=== PATIENT | male | born 1955 | race African-American/Black ===

== ENCOUNTER 2016-11-25 07:46 | Emergency (ER) | payer OTHER ==
[~2016-11-25 07:46] MED LIST: CLINDAMYCIN PO; INDOMETHACIN75 MG PO; NAPROSYN500 MG PO; NO MEDICATIONS; NORCO 10-325 TA1 TAB PO; PREDNISONE PO; TYLOX 5-500 CA1 EACH PO; ULTRAM PO; VICODIN 5/500 T1 TAB PO
== END 2016-11-25 09:13 | disposition home or self-care (01) ==
LOC: CED 07:46
DX: M1A.9XX0 Chronic gout, unspecified, without tophus (tophi) (principal); I10 Essential (primary) hypertension
CPT/HCPCS: 96372; 99283; J1885

== ENCOUNTER 2016-12-03 16:11 | Inpatient (IN) | payer OTHER ==
--- NOTE | ~2016-12-03 | US85 ---
[facility] A Service of [facility] & [facility] RADIOLOGY TEXT RESULTS PATIENT: MAYRA MEJIA LOCATION: [place] [id number] : 55 UNIT #: [id number] AGE: [address]: Clau Guidry MD SEX: M ORDER DR: [id number] [facility] [address] [facility]. [place], [place] [address] [id number] I MR#: [id number] Acc #: [id number] NAME: MAYRA MEJIA. : 1955 SEX: M STUDY DATE/TIME: 12/03/2016 19:32 UNIT: [facility] ROOM: [facility] STUDY DESCRIPTION: US LE Veins Unilat or Ltd Stdy Attending Physician: Clau Guidry M.D. Ordering Physician: Gretel Steen M.D. Primary Care Physician: Rafy Mustafa Jr., A.P.R.N. MEDICAL IMAGING REPORT This report is preliminary unless electronic signature is present EXAM Left lower extremity venous ultrasound HISTORY Left lower extremity pain and swelling and shortness of air for 1 week. TECHNIQUE Venous ultrasound examination of the left lower extremity was performed using grayscale, spectral Doppler and color flow Doppler imaging. FINDINGS The examination is negative. There is no evidence of left lower extremity deep venous thrombus from the groin to the lower calf. Visualized greater saphenous vein is also patent. IMPRESSION Negative examination. No evidence of left lower extremity deep venous thrombosis. Dictated by... Al Mejia M.D. THIS IS AN ELECTRONICALLY VERIFIED REPORT Al Mejia M.D. at 12/04/2016 3:12 PM Alfie TD: 12/04/2016 08:17 JOB #: [id number] MEDICAL IMAGING REPORT Page 1 of 1 COPY
--- NOTE | ~2016-12-03 | CR169 ---
[facility] A Service of [facility] & [facility] RADIOLOGY TEXT RESULTS PATIENT: MAYRA MEJIA LOCATION: [place] [address] : 55 UNIT #: [id number] AGE: [address]: Clau Guidry MD SEX: M ORDER DR: [id number] [facility] [address] [place], [place] [address] [id number] I MR#: [id number] Acc #: [id number] NAME: MAYRA MEJIA. : 1955 SEX: M STUDY DATE/TIME: 12/03/2016 17:33 UNIT: [facility] ROOM: [facility] STUDY DESCRIPTION: CR Knee 2 Views Lt Attending Physician: Prudencio Mae M.D. Ordering Physician: Gretel Steen M.D. Primary Care Physician: Rafy Mustafa Jr., A.P.R.N. MEDICAL IMAGING REPORT This report is preliminary unless electronic signature is present EXAM Left knee, 2 views HISTORY Knee pain and swelling for 1 week. No injury. FINDINGS Two views left knee demonstrate normal bone alignment. No fracture, joint space narrowing or effusion. Soft tissue swelling over the anterior knee, inferior to the patella extending to the anterior tibial tubercle. IMPRESSION 1. No fracture. Satisfactory bone alignment. 2. Anterior soft tissue swelling extending from the lower pole of the patella to the anterior tibial tubercle. Dictated by... Al Mejia M.D. THIS IS AN ELECTRONICALLY VERIFIED REPORT Al Mejia M.D. at 12/04/2016 3:07 PM DFL/psc TD: 12/04/2016 02:51 JOB #: [id number] MEDICAL IMAGING REPORT Page 1 of 1 COPY
--- NOTE | ~2016-12-03 | HP ---
Unit #: [id number] #: [id number] Patient: MAYRA MEJIA [id number] [address] [place], [place] [address] [id number] I MR#: [id number] NAME: MAYRA MEJIA. ROOM: 471 Age: 61 Sex: M Admission Date: 12/03/2016 : 1955 Attending Physician: Prudencio Mae M.D. Primary Care Physician: Rafy Mustafa Jr., A.P.R.N. HISTORY AND PHYSICAL CHIEF COMPLAINT Left ankle and left lower leg swelling, pain. DISCUSSION This is a 61-year-old gentleman with a history of gout. He initially presented here in the emergency room on November 25 for left leg and ankle pain. Was diagnosed with gout and he said he was given some shot and pain pills. He also received pain medication with worsening symptoms. It did not improve, came to the emergency room today. He had been having left lower leg pain progressing over one week. Increasing swelling and edema on the left lower leg and severe pain. He underwent ultrasound. Ultrasound preliminary report so far is negative for DVT. He has increased CRP and being admitted for diagnosis of left ankle and left lower leg cellulitis. He denies fever, chills, cough, chest pain, diaphoresis, palpitations or any other complaint. PAST MEDICAL HISTORY History of gout. HOME MEDICATION Does not take any home medication at this time. ALLERGIES No allergies. SOCIAL HISTORY The patient says he is a lifelong nonsmoker, does not drink alcohol. Lives with his niece. FAMILY HISTORY Gout. REVIEW OF SYSTEMS All review of systems is negative except for history of present illness. PHYSICAL EXAMINATION GENERAL: Middle aged male lying in the bed comfortably, currently not in any distress. He is alert, awake, oriented x3. CURRENT VITAL SIGNS: Temperature 98.7, heart rate 93, respiratory rate 16, blood pressure 157/107. Oxygen 99% on room air. HEENT: Pupils equal, reactive to light and accommodation. Head is normocephalic, atraumatic. NECK: Supple. No JVD. HEART: S1, S2. Regular rate and rhythm. Unit #: [id number] #: [id number] Patient: JACKIE,MAYRA L LUNGS: Clear to auscultation bilaterally. No rhonchi, no wheezing. ABDOMEN: Soft, nontender, nondistended. Bowel sounds positive. EXTREMITIES: Left lower leg positive for swelling and warm. Left ankle positive for swelling also. Right leg - no cyanosis, no clubbing, no edema. NEURO: Cranial nerves II-XII intact. No focal neurologic deficit. SKIN: Warm, dry. PSYCH: Normal mood and affect. DIAGNOSTIC STUDIES LABORATORY: C-reactive protein is 16, INR is 1.1. Chemistry - sodium 134, potassium 3.5, chloride 102, glucose 102, BUN 21, creatinine 1.2, white count 10, hemoglobin 12, hematocrit 39, platelets 200. IMAGING: X-ray of the left ankle - there is a 1 cm lucent area at the left malleolar tip, otherwise unremarkable. Some soft tissue swelling. Left knee x-ray is negative. Anterior soft tissue swelling. ASSESSMENT AND PLAN 1. Left lower leg/left ankle cellulitis: Will start the patient on IV Rocephin and vancomycin. 2. History of gout: Will recheck (1) level. 3. Deep venous thrombosis prophylaxis: Will place the patient on Lovenox. Dictated by Idalmis Kamara/montserrat TD: 12/04/2016 06:21 JOB #: [id number] HISTORY AND PHYSICAL Page 1 of 1 X X HISTORY AND PHYSICAL
--- NOTE | ~2016-12-03 | CR20 ---
[facility] A Service of [facility] RADIOLOGY TEXT RESULTS PATIENT: MAYRA MEJIA LOCATION: [facility] [address] : 55 UNIT #: [id number] AGE: [address]: Clau Guidry MD SEX: M ORDER DR: [id number] [facility] [address] [facility]. [place], [place] [address] [id number] I MR#: [id number] Acc #: [id number] NAME: MAYRA MEJIA. : 1955 SEX: M STUDY DATE/TIME: 12/03/2016 17:30 UNIT: [facility] ROOM: [facility] STUDY DESCRIPTION: CR Ankle Min 3 Views Lt Attending Physician: Prudencio Mae M.D. Ordering Physician: Gretel Steen M.D. Primary Care Physician: Rafy Mustafa Jr., A.P.R.N. MEDICAL IMAGING REPORT This report is preliminary unless electronic signature is present EXAM Left ankle series dated 12/03/2016. COMPARISON No priors. HISTORY Left ankle and knee pain 1 week ago. FINDINGS Three views of the left ankle were obtained. No acute displaced fracture or dislocation is seen. There is a 1 cm lucent area noted in the region of the lateral malleolar tip with some peripheral sclerosis. It is best seen in the oblique view. Even if it is a true lesion, it is probably a chronic, nonaggressive lesion like a cyst. In the superior and medial aspect of the talus, there is a lucent lesion with peripheral sclerosis most suggestive of an osteochondral defect. No obvious associated loose bodies could be identified in the current modality. There is some soft tissue swelling in the ankle. Dictated by... Sumaya Lindsey M.D. THIS IS AN ELECTRONICALLY VERIFIED REPORT Sumaya Lindsey M.D. at 12/04/2016 8:43 PM CPR/psc TD: 12/04/2016 03:12 JOB #: [id number] MEDICAL IMAGING REPORT [facility] A Service of [facility] & [facility] RADIOLOGY TEXT RESULTS PATIENT: MAYRA MEJIA [address] #: [id number] : [birth year] UNIT #: [id number] AGE: [address]: Clau Guidry MD SEX: M ORDER DR: Page 1 of 1 COPY
--- NOTE | ~2016-12-03 | DS ---
Unit #: [id number] #: [id number] Patient: MAYRA MEJIA [id number] [address] [place], [place] [address] [id number] I MR#: [id number] NAME: MAYRA MEJIA. ROOM: 240 Age: 61 Sex: M Admission Date: 12/03/2016 : 1955 Discharge Date: 12/05/2016 Attending Physician: Clau Guidry M.D. Primary Care Physician: Rafy Mustafa Jr., A.P.R.N. DISCHARGE SUMMARY PRINCIPAL DIAGNOSES 1. Acute gout flare of left medial malleolus. 2. Left lower extremity cellulitis, mild. 3. Hypertension, controlled. 4. Hypokalemia. 5. Normocytic anemia. CONSULTANTS None. PROCEDURE 1. Left lower extremity venous Doppler which was negative for DVT. 2. X-ray of left ankle on December 03, 2016, without evidence of fracture. 1 cm lucent area in the lateral malleolar tip consistent with a non-aggressive cyst. 3. X-ray of left knee on December 03, 2016, with no fracture. Anterior soft tissue swelling extending from the lower pole of the patella to the anterior tibial tubercle. CLINICAL HISTORY/HOSPITAL COURSE Mr. Mejia is a 61-year-old -[place] male who presents to the emergency department with a one week history of progressive swelling and redness of the left ankle extending now to the left lower extremity. Please refer to H and P for further details. The patient clinically appeared to have some very mild degree of cellulitis. He had been treated for gout flare as an outpatient without improvement. Subsequently, he was admitted. The patient was placed on empiric Zosyn and vancomycin originally but remained afebrile and had only minimal leukocytosis with a white blood cell count of approximately 11,000. He was subsequently changed to Unasyn. He was also given some doses of Colcrys given the worst of the lesion appeared to be over the left medial malleolus and seemed more consistent with gout. However, I will not his urine acid level was low at 4.7. Unclear to me whether this was chronically controlled or whether it was perhaps secondary to a recent gouty flare with drop in uric acid level. Either way, today, patient's left ankle swelling and redness is significantly improved though not resolved. He has remained afebrile. He has not had any leukocytosis since initial presentation to the ER. He will be transitioned to oral pills and discharged home later today. I will note, patient did have some significantly elevated blood pressures which may be, a least partially, secondary to pain but systolics are running in the 150s to 160s. He was started on low dose lisinopril and Unit #: [id number] #: [id number] Patient: MAYRA MEJIA blood pressure now is in the 130s. I would avoid hydrochlorothiazide in this gout-prone patient in the future. The patient will be discharged home later today. DISCHARGE CONDITION Stable. DISCHARGE STATUS Discharge to home. DISCHARGE MEDICATIONS 1. Lisinopril 10 mg daily with one refill. 2. Percocet 7.5/325, one tablet p.o. q.4 hours p.r.n. for pain, number given 12. 3. Keflex 500 mg p.o. t.i.d. for seven days. DISCHARGE INSTRUCTIONS The patient was instructed to follow a heart healthy diet. He can increase his activity as tolerated. May return to work when his foot is able. FOLLOWUP The patient will follow up with his primary care provider, Dr. Mustafa, in two weeks. Dictated by... Clau Guidry M.D. MAXIMILIAN/montserrat TD: 12/06/2016 09:35 JOB #: [id number] DISCHARGE SUMMARY Page 1 of 1 X Clau Guidry MD X DISCHARGE SUMMARY
[2016-12-03 17:49] LABS: BASOPHIL% 0.3 % (0-2.5); EOSINOPHIL% 0.4 % (0.0-7.0); HEMATOCRIT 39.2 % (38.0-50.0); HEMOGLOBIN 12.8 gm/dL (13.0-16.0); LYMPHOCYTE% 9.2 % (17.0-45.0); MEAN CORPUSCULAR HEMOGLOBIN 27.5 PG (28-34); MEAN CORPUSCULAR HGB CONC 32.7 g/dL (30-36); MONOCYTE# 0.8 X10e3 (0-1.0); NEUTROPHIL# 9.1 X10e3 (1.5-7.1); NEUTROPHIL% 83.1 % (40-75); PLATELET COUNT 200 X10e3 (140-420); RED BLOOD COUNT 4.66 X10e (3.90-5.60); RED CELL DISTRIBUTION WIDTH 15.8 % (11.0-15.5); WHITE BLOOD COUNT 10.9 X10e3 (4.0-10.5)
[2016-12-03 17:55] LABS: DIFF IND NO
[2016-12-03 17:59] LABS: BUN/CREATININE RATIO 17.5; CALCIUM SERUM 8.9 mg/dL (8.4-10.2); CREATININE SERUM 1.2 mg/dL (0.6-1.4); GLOM FILT RATE Estimated 75.2 mL/min (>60); POTASSIUM 3.5 mmol/L (3.5-5.1)
[2016-12-03 18:04] LABS: INR 1.1; PARTIAL THROMBOPLASTIN TIME 41.1 SECONDS (23.5-31.3); PROTHROMBIN TIME (PATIENT) 11.4 SECONDS (10.0-11.7)
[2016-12-03] MEDS ORDERED: NO MEDICATIONS (19:27)
[2016-12-04 03:56] LABS: BASOPHIL# 0.1 X10e3 (0-0.3); BASOPHIL% 0.7 % (0-2.5); EOSINOPHIL# 0.1 X10e3 (0-0.7); EOSINOPHIL% 1.2 % (0.0-7.0); HEMATOCRIT 34.6 % (38.0-50.0); HEMOGLOBIN 11.4 gm/dL (13.0-16.0); LYMPHOCYTE# 1.6 X10e3 (1.0-3.5); LYMPHOCYTE% 18.9 % (17.0-45.0); MEAN CELL VOLUME 83.6 FL (83-96); MEAN CORPUSCULAR HEMOGLOBIN 27.6 PG (28-34); MEAN PLATELET VOLUME 9.2 FL (6.5-11.5); MONOCYTE# 0.9 X10e3 (0-1.0); MONOCYTE% 10.8 % (3.0-12.0); NEUTROPHIL# 5.7 X10e3 (1.5-7.1); NEUTROPHIL% 68.4 % (40-75); PLATELET COUNT 182 X10e3 (140-420); RED BLOOD COUNT 4.14 X10e (3.90-5.60); RED CELL DISTRIBUTION WIDTH 15.3 % (11.0-15.5); WHITE BLOOD COUNT 8.3 X10e3 (4.0-10.5)
[2016-12-04 03:58] LABS: DIFF IND NO
[2016-12-04 04:23] LABS: BUN/CREATININE RATIO 17.77; CALCIUM SERUM 8.2 mg/dL (8.4-10.2); CREATININE SERUM 0.9 mg/dL (0.6-1.4); GLOM FILT RATE Estimated 106.5 mL/min (>60); POTASSIUM 3.6 mmol/L (3.5-5.1); URIC ACID 4.7 mg/dL (2.6-7.2)
[2016-12-05 06:57] LABS: HEMATOCRIT 35.2 % (38.0-50.0); HEMOGLOBIN 11.6 gm/dL (13.0-16.0); MEAN CELL VOLUME 82.9 FL (83-96); MEAN CORPUSCULAR HEMOGLOBIN 27.4 PG (28-34); MEAN CORPUSCULAR HGB CONC 33.1 g/dL (30-36); MEAN PLATELET VOLUME 8.9 FL (6.5-11.5); RED BLOOD COUNT 4.25 X10e (3.90-5.60); WHITE BLOOD COUNT 8.4 X10e3 (4.0-10.5)
[2016-12-05 07:30] LABS: CALCIUM SERUM 8.5 mg/dL (8.4-10.2); GLOM FILT RATE Estimated 93.7 mL/min (>60); POTASSIUM 3.2 mmol/L (3.5-5.1)
[2016-12-05] MEDS ORDERED: PERCOCET 7.5-31 EACH PO (11:21)
[2016-12-05] MEDS ORDERED: LISINOPRIL10 MG PO (11:22)
[2016-12-05] MEDS ORDERED: KEFLEX500 MG PO (11:23)
== END 2016-12-05 12:51 | disposition home or self-care (01) | DRG 603 ==
LOC: CED 16:11 → CEDOF 20:00 → CED 20:13 → CEDOF 20:13 → C4C 21:00 → C2A 12-04 12:16
PROVIDERS: Internal Medicine; Student in an Organized Health Care Education/Training Program
DX: L03.116 Cellulitis of left lower limb (principal); M10.9 Gout, unspecified; D64.9 Anemia, unspecified
CPT/HCPCS: 36415; 73560; 73610; 80048; 84550; 85025; 85027; 85610; 85730; 86140; 87040; 93971; 96360; 99285; J0295; J1650; J2270; J2543; J3370

== ENCOUNTER 2016-12-21 21:43 | Emergency (ER) | payer OTHER ==
--- NOTE | ~2016-12-21 | CR141 ---
[facility] A Service of [facility] & [facility] RADIOLOGY TEXT RESULTS PATIENT: MAYRA MEJIA LOCATION: [facility] : 55 UNIT #: [id number] AGE: [address]: Keith Trujillo SEX: M ORDER DR: [id number] [facility] [address]. [place], [place] [address] [id number] MR#: [id number] Acc #: [id number] NAME: MAYRA MEJIA : 1955 SEX: M STUDY DATE/TIME: 12/21/2016 22:57 UNIT: [facility] ROOM: STUDY DESCRIPTION: CR Hand Min 3 Views Lt Attending Physician: Keith Trujillo P.A.-C. Ordering Physician: Keith Trujillo P.A.-C. Primary Care Physician: Rafy Mustafa Jr., A.P.R.N. MEDICAL IMAGING REPORT This report is preliminary unless electronic signature is present EXAM Left hand, 12/21/2016 INDICATIONS 61-year-old male with pain and swelling that began 3 days ago. Redness. No known injury. TECHNIQUE Three views of the left hand. No comparisons. FINDINGS There is mild diffuse soft tissue swelling. No acute fracture or retained opaque foreign body and the joint spaces are preserved. There is degenerative change of the PIP joint second digit. IMPRESSION 1. Nonspecific mild soft tissue swelling. This could reflect cellulitis. No acute fracture. Degenerative change of the PIP joint second digit. Dictated by... Carlos Borja M.D. THIS IS AN ELECTRONICALLY VERIFIED REPORT Carlos Borja M.D. at 12/22/2016 10:33 AM Xochitl TD: 12/22/2016 03:38 JOB #: [id number] MEDICAL IMAGING REPORT Page 1 of 1 COPY
[~2016-12-21 21:43] MED LIST changes: +KEFLEX500 MG PO; +LISINOPRIL10 MG PO; +PERCOCET 7.5-31 EACH PO
[2016-12-21 23:27] LABS: BASOPHIL% 0.5 % (0-2.5); DIFF IND NO; EOSINOPHIL# 0.2 X10e3 (0-0.7); EOSINOPHIL% 2.6 % (0.0-7.0); HEMATOCRIT 39.7 % (38.0-50.0); HEMOGLOBIN 13.2 gm/dL (13.0-16.0); LYMPHOCYTE# 1.4 X10e3 (1.0-3.5); LYMPHOCYTE% 15.4 % (17.0-45.0); MEAN CELL VOLUME 81.9 FL (83-96); MEAN CORPUSCULAR HEMOGLOBIN 27.3 PG (28-34); MEAN CORPUSCULAR HGB CONC 33.4 g/dL (30-36); MEAN PLATELET VOLUME 8.2 FL (6.5-11.5); MONOCYTE# 0.7 X10e3 (0-1.0); MONOCYTE% 7.9 % (3.0-12.0); NEUTROPHIL# 6.5 X10e3 (1.5-7.1); NEUTROPHIL% 73.6 % (40-75); PLATELET COUNT 354 X10e3 (140-420); RED BLOOD COUNT 4.84 X10e (3.90-5.60); RED CELL DISTRIBUTION WIDTH 14.7 % (11.0-15.5); WHITE BLOOD COUNT 8.8 X10e3 (4.0-10.5)
[2016-12-21 23:50] LABS: ALBUMIN SERUM 3.9 g/dL (3.5-5.0); BILIRUBIN, DIRECT 0.1 mg/dL (0.0-0.2); BILIRUBIN,INDIRECT 0.6 mg/dL (0.0-0.9); BILIRUBIN,TOTAL 0.7 mg/dL (0.2-2.0); CALCIUM SERUM 9.2 mg/dL (8.4-10.2); GLOM FILT RATE Estimated 93.7 mL/min (>60); POTASSIUM 3.4 mmol/L (3.5-5.1); PROTEIN TOTAL SERUM 7.4 g/dL (6.0-8.3)
== END 2016-12-22 07:09 | disposition short-term general hospital (02) ==
LOC: CFTX 21:43 → CED 21:43 → CFTX 22:56 → CED 12-22 07:09
PROVIDERS: Physician Assistant
DX: M65.9 Synovitis and tenosynovitis, unspecified (principal); I10 Essential (primary) hypertension; M10.9 Gout, unspecified
CPT/HCPCS: 36415; 73130; 80048; 80076; 83605; 85025; 85652; 86140; 87040; 96361; 96365; 96375; 99284; J0696; J1170; J1885; J2270; J2405; J3370